=== PATIENT | female | born 1975 | race Caucasian/White ===

== ENCOUNTER 2016-10-02 12:21 | Day surgery (SDC) | payer OTHER ==
[~2016-10-02 12:21] MED LIST: cefOXitin SODIUM 2 GM in D5W 100 ML IV ONE
--- NOTE | 2016-10-02 12:37 | PDGENHP ---
History and Physical - Chief Complaint acute appendicitis - History of Present Illness Ms ofelia honeycutt is a 41-year-old woman who developed abdominal pain on Saturday. It localized to the right lower quadrant last evening and she almost presented to the emergency room. The pain improved and then worsened again this am. She contacted her primary care. An ultrasound was performed which showed acute appendicitis. She has nausea when the pain is more intense. She denies fevers History Information - Allergies/Home Medication List Allergies/Adverse Reactions: erythromycin base Allergy (Verified 10/02/16 12:21) I have personally reviewed and updated: family history, medical history, social history, surgical history - Past Medical History Additional medical history: Spondyloarthropathy is, Raynaud's, osteopenia - Surgical History Additional surgical history: Left inguinal hernia repair, oral surgery - Family History Additional family history: Her father has hyperlipidemia, cancer, diabetes and hypertension, her mother had cancer, atrial fibrillation and mitral valve prolapse - Social History Smoking Status: Never smoked Alcohol Use: Occasionally Additional social history: She is very active. Review of Systems ROS: 10pt was reviewed & negative except for what was stated in HPI & below Physical Exam Physical Exam: General: Pleasant, well-nourished and well-groomed woman HENT: Normocephalic, no gross hearing deficits, mucous membranes moist, pupils equal and round, no scleral icterus Neck: Trachea midline, no cervical lymphadenopathy Lungs: Clear to auscultation bilaterally, No increased work of breathing Cardiac: Regular rate, no peripheral edema Abdomen: Bowel sounds present, soft and tender in right lower quadrant. Incisions clean dry and intact Skin: Warm and dry. MSK: Normal gait and normal nails Psych: Mood and affect normal Neuro: Grossly intact Lab Data & Imaging Review Imaging Review: I personally reviewed the results of her ultrasound. It has evidence of acute appendicitis Assessment & Plan Assessment: Acute appendicitis Plan: Patient is a 41-year-old woman with acute appendicitis. I will take her to the operating room for laparoscopic appendectomy. The risks and benefits including but not limited to stroke, heart attack, , blood clots, infection, bleeding , damage to surrounding structures such as the bowel bladder were discussed. She will receive antibiotics medical scientific liaison to the operating room.
[2016-10-02] MEDS ORDERED: BUPIVACAINE 0.5% 30 ML SDV ONE (12:57)
[2016-10-02] MEDS ORDERED: METOCLOPRAMIDE 10 MG TAB ONE (13:20)
[2016-10-02] MEDS ORDERED: SCOPOLAMINE HYDROBROMIDE 1.5 MG PATCH TD ONE ×2 (13:20→13:22)
[2016-10-02] MEDS ORDERED: MIDAZOLAM 2 MG/2 ML VIAL ONE (13:21)
[2016-10-02 13:22] LABS: % IMMATURE GRANULYOCYTES 0.4 % (0.0-1.1); ABSOLUTE IMMATURE GRANULOCYTES 0.05 10^3/uL (0.00-0.10); ADD DIFF? NO; ADD MORPH? NO; ADD SCAN? NO; ATYPICAL LYMPHOCYTE FLAG 10 (0-99); FRAGMENT RBC FLAG 0 (0-99); HEMATOCRIT 44.5 % (38.0-47.0); HEMOGLOBIN 15.4 g/dL (12.6-16.3); LEFT SHIFT FLG 0 (0-99); LIPEMIA HEMOLYSIS FLAG 90 (0-99); MEAN CELL HEMOGLOBIN 32.6 pg (27.9-34.1); MEAN CELL HEMOGLOBIN CONCENTR. 34.6 g/dL (32.4-36.7); MEAN CELL VOLUME 94.3 fL (81.5-99.8); MEAN PLATELET VOLUME 9.3 fL (8.7-11.7); PLATELET CLUMPS FLAG 0 (0-99); PLATELET COUNT 303 10^3/uL (150-400); RED BLOOD CELL COUNT 4.72 10^6/uL (4.18-5.33); RED CELL DISTRIBUTION WIDTH 12.4 % (11.5-15.2)
[2016-10-02] MEDS ORDERED: MIDAZOLAM 2 MG/2 ML VIAL IVP ONE (13:22)
--- NOTE | 2016-10-02 13:23 | PDANEPAE ---
ANE History of Present Illness acute appendicitis ANE Past Medical History - Pulmonary History Hx Sleep Apnea: No ANE Patient History - Allergies Allergies/Adverse Reactions: erythromycin base Allergy (Verified 10/02/16 12:21) - NPO status NPO Since - Liquids (Date): 10/02/16 NPO Since - Liquids (Time): 10:30 NPO Since - Solids (Date): 10/01/16 NPO Since - Solids (Time): 21:00 - Smoking Hx Smoking Status: Never smoked - Alcohol Use Alcohol Use: Occasionally ANE Labs/Vital Signs - Labs Result Diagrams: 10/02/16 13:10 10/02/16 13:10 - Vital Signs Blood Pressure: 118/82 Heart Rate: 79 Respiratory Rate: 16 O2 Sat (%): 99 ANE Physical Exam - Airway Neck exam: FROM Mallampati Score: Class 1 Mouth exam: normal dental/mouth exam - Pulmonary Pulmonary: no respiratory distress - Cardiovascular Cardiovascular: regular rate and rhythym - ASA Status ASA Status: I ANE Anesthesia Plan Anesthesia Plan: general endotracheal anesthesia
[2016-10-02] MEDS ORDERED: fentaNYL 100 MCG/2 ML INJ ONE ×2 (13:25)
[2016-10-02] MEDS ORDERED: DEXAMETHASONE 4 MG/ML VIAL ONE (13:25)
[2016-10-02] MEDS ORDERED: ROCURONIUM 50 MG/5 ML VIAL ONE (13:25)
[2016-10-02] MEDS ORDERED: ONDANSETRON 4 MG/2 ML VIAL ONE (13:25)
[2016-10-02] MEDS ORDERED: PROPOFOL 200 MG/20 ML VIAL ONE (13:25)
[2016-10-02] MEDS ORDERED: LR 1,000 ML IV ONE (13:36)
[2016-10-02] MEDS ORDERED: LIDOCAINE 1% 2 ML INJ ID PRN (13:36)
[2016-10-02 13:40] LABS: ANION GAP 14 mEq/L (8-16); CALCIUM 9.7 mg/dL (8.5-10.4); CARBON DIOXIDE 24 mEq/l (22-31); CHLORIDE 105 mEq/L (97-110); CREATININE 0.6 mg/dL (0.6-1.0); GLOMERULAR FILTRATION RATE > 60; GLUCOSE 89 mg/dL (70-100); POTASSIUM 4.1 mEq/L (3.5-5.2); SODIUM 143 mEq/L (134-144)
[2016-10-02] MEDS ORDERED: fentaNYL 100 MCG/2 ML INJ IVP PRN (14:07)
[2016-10-02] MEDS ORDERED: ONDANSETRON 4 MG/2 ML VIAL IVP PRN (14:07)
[2016-10-02] MEDS ORDERED: PROMETHAZINE HCL 25 MG/ML INJ IVP PRN (14:07)
[2016-10-02] MEDS ORDERED: HYDROmorphONE/DILAUDID 1 MG/ML SYR IVP PRN (14:07)
[2016-10-02] MEDS ORDERED: DEXAMETHASONE 4 MG/ML VIAL IVP PRN (14:07)
[2016-10-02] MEDS ORDERED: NALOXONE HCL 0.4 MG/ML INJ IVP PRN (14:07)
--- NOTE | 2016-10-02 14:24 | POSTOPPROG ---
Post Op Note Date of Operation: 10/02/16 Surgeon: Mariella Corea Anesthesiologist: [place] Anesthesia: GET(General Endotracheal) Pre-op Diagnosis: acute appendicitis Post-op Diagnosis: same Indication: 41 yo with acute appendicitis Procedure: lap appy Findings: inflamed appendix Inf/Abcess present in the surg proc area at time of surgery?: No EBL: Minimal Specimen(s): appendix
[2016-10-02 14:42] VITALS: PULSE 60
[2016-10-02] MEDS ORDERED: KETOROLAC 30 MG/1 ML SDV ONE (15:06)
[2016-10-02] MEDS ORDERED: KETOROLAC 30 MG/1 ML SDV IVP ONE (15:15)
[2016-10-02 16:04] VITALS: RESP 16
[2016-10-02 17:10] VITALS: TEMP 98.6
[2016-10-02 17:11] VITALS: BP 120/89; O2SAT 96
== END 2016-10-02 17:30 | disposition home or self-care (01) ==
LOC: FSGY 12:21
PROVIDERS: ATTEND Surgery
PROC: 0DTJ4ZZ Resection of Appendix, Percutaneous Endoscopic Approach (ICD-10-PCS; principal; 2016-10-02 13:45)
DX: K35.80 Unspecified acute appendicitis (principal)
CPT/HCPCS: J0694; J1100; J1885; J2250; J2405; J2704; J3010

== ENCOUNTER → 2016-10-02 | Outpatient (CLI) | payer OTHER | LOC: BMCIMAGING 09:35 | PROVIDERS: ATTEND Internal Medicine | DX: K37 Unspecified appendicitis (principal) ==